=== PATIENT | male | born 1990 | race Caucasian/White ===

== ENCOUNTER 2021-09-18 22:55 | Emergency (ER) | payer OTHER ==
[2021-09-18 23:05] VITALS: BP 148/94; PULSE 75; TEMP 98.7; BMI 30.5
== END 2021-09-18 23:22 | disposition home or self-care (01) ==
LOC: FER 22:55
DX: I10 Essential (primary) hypertension (principal)
CPT/HCPCS: 99281-25

== ENCOUNTER 2022-03-22 15:54 | Emergency (ER) | payer OTHER ==
[2022-03-22 16:31] VITALS: BMI 30.2
[2022-03-22] MEDS ORDERED: IBUPROFEN 600 MG TABLET (FP) PO ONE ×2 (16:48→17:32)
[2022-03-22 18:15] VITALS: BP 132/77; PULSE 104; TEMP 99.6
[2022-03-23 12:11] LABS: SARS-CoV-2 NAA Not Detected (Not Detected)
== END 2022-03-22 19:46 | disposition home or self-care (01) ==
LOC: JER 15:54
DX: J06.9 Acute upper respiratory infection, unspecified (principal); R05.1 Acute cough; R09.81 Nasal congestion; J09.X2 Influenza due to identified novel influenza A virus with other respiratory manifestations
CPT/HCPCS: 71046-TC-FY; 87804; 99284-25; C9803-CS; U0003; U0005